=== PATIENT | female | born 1965 | race Caucasian/White ===

== ENCOUNTER 2017-02-08 23:54 | Emergency (ER) | payer OTHER ==
[~2017-02-08] VITALS: Ht 160 cm; Wt 95.3 kg
[~2017-02-08 23:54] MED LIST: AUGMENTIN 875 M1 TAB PO; CLARITIN10 MG PO; NAPROSYN500 MG PO
[2017-02-09] VITALS: BP 135/73
[2017-02-09 01:00] LABS: BASO % 0.3 % (0.0-1.0); EOS # 0.1 10*3/uL (0.0-0.4); EOS % 0.7 % (1.0-4.0); HEMATOCRIT 34.7 % (37.0-47.0); HEMOGLOBIN 11.6 g/dl (12.0-16.0); LYMPH # 1.7 10*3/uL (1.3-4.4); LYMPH % 14.1 % (27.0-41.0); MEAN CELL VOLUME 84.4 fl (81.0-99.0); MEAN CORPUSCULAR HGB 28.2 pg (27.0-31.0); MEAN CORPUSCULAR HGB CONC 33.4 g/dl (33.0-37.0); MEAN PLATELET VOLUME 9.9 fl (9.6-12.3); MONO # 0.8 10*3/uL (0.1-1.0); MONO % 6.7 % (3.0-9.0); NEUT # 9.5 10*3/uL (2.3-7.9); NEUT % 77.8 % (47.0-73.0); PLATELET COUNT AUTOMATED 210 10*3/uL (130-400); RED BLOOD COUNT 4.11 10*6/uL (4.10-5.10); RED CELL DISTRI WIDTH 14.2 % (0-14.5); WHITE BLOOD COUNT 12.2 10*3/uL (4.8-10.8)
[2017-02-09 01:17] LABS: ALKALINE PHOSPHATASE 109 U/L (45-117); BUN 15 mg/dl (7-24); CHLORIDE 102 mmol/L (98-107); CREATININE 0.72 mg/dL (0.55-1.02); POTASSIUM 3.5 mmol/L (3.5-5.1); SGOT/AST 20 IU/L (3-35); SGPT/ALT 17 U/L (12-78); SODIUM 136 mmol/L (136-145); TOTAL PROTEIN 8.1 gm/dL (6.4-8.2)
[2017-02-09] MEDS ORDERED: FLAGYL500 MG PO (03:20)
[2017-02-09] MEDS ORDERED: CLINDAMYCIN HC300 MG PO (03:20)
[2017-02-09] MEDS ORDERED: Motrin,Rufen800 MG PO (03:20)
== END 2017-02-09 04:07 | disposition home or self-care (01) ==
LOC: ED 23:54
PROVIDERS: Emergency Medicine Emergency Medical Services
DX: K11.20 Sialoadenitis, unspecified (principal); Z98.51 Tubal ligation status

== ENCOUNTER 2017-07-20 15:57 | Emergency (ER) | payer OTHER ==
[~2017-07-20] VITALS: Ht 157.4 cm; Wt 95.3 kg
[~2017-07-20 15:57] MED LIST changes: +CLINDAMYCIN HC300 MG PO; +FLAGYL500 MG PO; +Motrin,Rufen800 MG PO
[2017-07-20 16:01] VITALS: BP 145/78
[2017-07-20] MEDS ORDERED: CLINDAMYCIN HC300 MG PO (16:21)
[2017-07-20] MEDS ORDERED: NAPROSYN500 MG PO (17:25)
== END 2017-07-20 17:17 | disposition home or self-care (01) ==
LOC: ED 15:57
DX: K08.89 Other specified disorders of teeth and supporting structures (principal); Z98.51 Tubal ligation status